=== PATIENT | male | born 1975 | race Caucasian/White ===

== ENCOUNTER 2022-04-06 20:59 | Emergency (ER) | payer BC ==
[~2022-04-06] VITALS: Ht 188 cm; Wt 95.3 kg
[~2022-04-06 20:59] MED LIST: LISI10TA29 PO
--- NOTE | 2022-04-06 21:41 | NUR ---
[facility] C/O [facility] STARTED AT 8AM WITH HIGH BP AT HOME PT A/OX4. TOLERATING R/A WELL WITH NO SOB. PT AMBULATORY WITH STEADY GAIT. CONNECTED PT TO POX AND MONITOR.
[2022-04-06] MEDS ORDERED: LABETALOL HCL IV 100MG VIAL ONE (21:53)
--- NOTE | 2022-04-06 21:55 | NUR ---
PT TAKEN TO CT VIA [facility]
[2022-04-06] MEDS ORDERED: LABETALOL HCL IV 100MG VIAL IV ONE (22:00)
--- NOTE | 2022-04-06 22:15 | NUR ---
LAC#20G S/L; PATENT AND INTACT. BLOOD COLLECTED AND SENT TO LAB
[2022-04-06 22:17] LABS: BASOPHILS % (AUTO) 0.4 % (0.0-2.0); EOSINOPHILS % (AUTO) 1.2 % (0.0-6.0); HEMATOCRIT 39 % (39-51); HEMOGLOBIN 12.4 g/dL (13.5-17.5); LYMPHOCYTES # (AUTO) 2.2 K/uL (0.8-4.8); LYMPHOCYTES % (AUTO) 26.1 % (20.0-44.0); MEAN CORPUSCULAR HGB CONC 31 g/dl (31.0-36.0); MEAN CORPUSCULAR VOLUME 89 fL (80-96); MONOCYTES # (AUTO) 0.5 K/uL (0.1-1.30); MONOCYTES % (AUTO) 5.5 % (2.0-12.0); NEUTROPHILS # (AUTO) 5.6 K/uL (1.8-8.9); NEUTROPHILS % (AUTO) 66.8 % (43.0-81.0); PLATELET COUNT (AUTO) 391 K/uL (150-450); RED BLOOD CELL COUNT(AUTO) 4.44 MIL/uL (4.5-6.0); WHITE BLOOD COUNT (AUTO) 8.3 K/uL (4.3-11.0)
[2022-04-06] MEDS ORDERED: KETOROLAC TROMETHAMINE INJ 30 MG/ML VIAL ONE (22:24)
[2022-04-06] MEDS ORDERED: KETOROLAC TROMETHAMINE INJ 30 MG/ML VIAL IV ONE (22:30)
--- NOTE | 2022-04-06 22:30 | NUR ---
DR. RENETTA SANDERS AT PT'S BEDSIDE
[2022-04-06 22:34] LABS: CALCIUM, SERUM 8.3 mg/dL (8.5-10.1); CREATININE 1.1 mg/dL (0.6-1.3); POTASSIUM 3.4 mmol/L (3.5-5.1)
[2022-04-06] MEDS ORDERED: PSEUDOEPHEDRINE HCL 30 MG TABLET ONE (22:52)
[2022-04-06] MEDS ORDERED: hydrALAZINE HCL IV 20 MG VIAL IV ONE (23:00)
[2022-04-06] MEDS ORDERED: MORPHINE SULFATE INJ 2 MG/ML DISP.SYRIN IV ONE (23:00)
[2022-04-06] MEDS ORDERED: PSEUDOEPHEDRINE HCL 30 MG TABLET PO ONE (23:00)
[2022-04-06] MEDS ORDERED: hydrALAZINE HCL IV 20 MG VIAL ONE (23:14)
[2022-04-06] MEDS ORDERED: MORPHINE SULFATE INJ 2 MG/ML DISP.SYRIN ONE (23:14)
--- NOTE | 2022-04-07 00:20 | NUR ---
DEVELOPMENT SPECIALIST AT PT'S BEDSIDE
[2022-04-07] MEDS ORDERED: IBUPROFEN 400 MG TABLET PO ONE (00:30)
[2022-04-07] MEDS ORDERED: IBUPROFEN 400 MG TABLET ONE (00:37)
[2022-04-07 01:22] VITALS: BP 144/105
--- NOTE | 2022-04-07 01:22 | NUR ---
Patient discharged to home in stable condition. Written and verbal after care instructions given. Patient verbalizes understanding of instruction. PT ambulatory with a steady gait. IV removed. Catheter intact and site benign. Pressure and 4x4 applied to site. No bleeding noted.
== END 2022-04-07 01:22 | disposition home or self-care (01) ==
LOC: ER 21:07
DX: I16.0 Hypertensive urgency (principal); J32.9 Chronic sinusitis, unspecified; I10 Essential (primary) hypertension; F17.200 Nicotine dependence, unspecified, uncomplicated; Z79.899 Other long term (current) drug therapy
CPT/HCPCS: 36415 ×2; 70450; 80048; 84484 ×2; 85025; 93005; 96374; 96375; 99285; J0360; J1885; J2270; J3490